=== PATIENT | female | born 1970 | race Two or more races ===

== ENCOUNTER 2024-11-12 19:07 | Emergency (ER) | payer OTHER ==
[~2024-11-12] VITALS: Ht 147.3 cm; Wt 70.3 kg
[2024-11-12] MEDS ORDERED: GABAPENTIN600 MG PO (19:28)
[2024-11-12] MEDS ORDERED: FENOFIBRATE150 MG PO (19:28)
[2024-11-12] MEDS ORDERED: AMITRIPTYLINE H25 MG PO (19:28)
[2024-11-12] MEDS ORDERED: LIPITOR40 M1 PO (19:28)
[2024-11-12] MEDS ORDERED: METHOCARBAMOL500 MG PO (19:29)
[2024-11-12] MEDS ORDERED: PRILOSEC OTC20 MG PO (19:29)
[2024-11-12] MEDS ORDERED: HYDROCODONE-ACE15 M2 PO (19:29)
[2024-11-12] MEDS ORDERED: BELBUCA75 MCG BC (19:29)
[2024-11-12] MEDS ORDERED: ZANAFLEX4 MG PO (19:29)
[2024-11-12] MEDS ORDERED: KETOROLAC TROMETHAMINE 60 MG VIAL IM ONE ×2 (23:00→23:15)
[2024-11-12] MEDS ORDERED: KETO10TA2 PO (23:00)
[2024-11-12] MEDS ORDERED: DEXAMETHASONE SODIUM PHOSPHATE 4 MG/ML VIAL IM ONE (23:00)
[2024-11-12] MEDS ORDERED: ORPHENADRINE CITRATE 30 MG/ML AMPUL IM ONE (23:00)
[2024-11-12] MEDS ORDERED: ORPHENADRINE CITRATE 30 MG/ML AMPUL ONE (23:14)
[2024-11-12] MEDS ORDERED: DEXAMETHASONE SODIUM PHOSPHATE 4 MG/ML VIAL ONE ×2 (23:15→23:16)
== END 2024-11-13 00:45 | disposition home or self-care (01) ==
LOC: ER 19:10
DX: G89.11 Acute pain due to trauma (principal); M25.512 Pain in left shoulder; M25.511 Pain in right shoulder; Z88.6 Allergy status to analgesic agent
CPT/HCPCS: 73030; 96372; 99283; J1100; J1885; J2360